=== PATIENT | male | born 1985 | race Caucasian/White ===

== ENCOUNTER 2020-09-16 01:57 | Emergency (ER) | payer MEDICAID ==
[~2020-09-16] VITALS: Ht 165.1 cm; Wt 70.8 kg
--- NOTE | 2020-09-16 02:15 | NUR ---
B[facility] C/O ABDOMINAL PAIN X1 DAY +VOMITTING. PT STATES HE WAS ON 10 DAY BINGE DRINKING APPROXIMATELY 20 BEERS A DAY, LAST ALCOHOL INTAKE IS 20 HOURS AGO WITH 12 BEER CONSUMED,PT STATED THAT HE DONT HAVE A GOOD FOOD INTAKE FOR 1 WEEK, ABDOMINAL PAIN 10/10 WAS NOTED LOCATED AT EPIGASTIC AREA 1X VOMITING ALSO NOTED WITH CLEAR VOMITUS WHEN DOING AN ASSESSMENT NOTED, V/S CHEKED AND RECORDED, BREATHING EVEN AND UNLABORED, PT IS AMBULATORY WITH STEADY GAIT UPON ADMISSION,
[2020-09-16] MEDS ORDERED: IV NS 0.9% 1,000 ML BAG IV ONE (02:30)
[2020-09-16] MEDS ORDERED: ONDANSETRON HCL/PF 4 MG/2 ML VIAL IVP ONE (02:30)
[2020-09-16] MEDS ORDERED: MORPHINE SULFATE INJ 2 MG/ML DISP.SYRIN IV ONE (02:30)
--- NOTE | 2020-09-16 02:40 | NUR ---
LAB AT BEDSIDE, BLOOD DRAW DONE
[2020-09-16] MEDS ORDERED: ONDANSETRON HCL/PF 4 MG/2 ML VIAL ONE (02:42)
[2020-09-16] MEDS ORDERED: MORPHINE SULFATE INJ 4 MG/ML DISP.SYRIN ONE (02:43)
[2020-09-16 02:56] LABS: BASOPHILS # (AUTO) 0.1 /CMM (0.0-0.2); BASOPHILS % (AUTO) 1.1 % (0.0-2.0); EOSINOPHILS % (AUTO) 0.3 % (0.0-6.0); HEMATOCRIT 42 % (39-51); HEMOGLOBIN 14.5 g/dL (13.5-17.5); LYMPHOCYTES # (AUTO) 1.9 /CMM (0.8-4.8); MEAN CORPUSCULAR HGB CONC 35 g/dl (31.0-36.0); MEAN CORPUSCULAR VOLUME 92 fL (80-96); MONOCYTES # (AUTO) 0.5 /CMM (0.1-1.30); MONOCYTES % (AUTO) 8.3 % (2.0-12.0); NEUTROPHILS # (AUTO) 3.4 /CMM (1.8-8.9); NEUTROPHILS % (AUTO) 58.3 % (43.0-81.0); PLATELET COUNT (AUTO) 239 /CMM (150-450); RED BLOOD CELL COUNT(AUTO) 4.58 MIL/uL (4.5-6.0); WHITE BLOOD COUNT (AUTO) 5.8 K/uL (4.3-11.0)
[2020-09-16 03:12] LABS: ALBUMIN 3.7 g/dL (3.4-5.0); BILIRUBIN,DIRECT 0.2 mg/dL (0.0-0.2); BILIRUBIN,TOTAL 0.7 mg/dL (0.2-1.0); CALCIUM, SERUM 8.3 mg/dL (8.5-10.1); CREATININE 0.9 mg/dL (0.6-1.3); POTASSIUM 3.3 mmol/L (3.5-5.1)
--- NOTE | 2020-09-16 03:48 | NUR ---
Patient discharged to home in stable condition. no pain complaint upon discharge, no nausea or vomiting also noted Written and verbal after care instructions given. Patient verbalizes understanding of instruction.IV removed. Catheter intact and site benign. Pressure and 4x4 applied to site. No bleeding noted.Mr. Khan is ambulatory with a steady gait
[2020-09-16 03:50] VITALS: BP 139/80
== END 2020-09-16 03:51 | disposition home or self-care (01) ==
LOC: ER 01:59
DX: R10.9 Unspecified abdominal pain (principal); R11.10 Vomiting, unspecified; F10.10 Alcohol abuse, uncomplicated; Y90.9 Presence of alcohol in blood, level not specified
CPT/HCPCS: 36415; 80048; 80076; 83690; 85025; 96361; 96374; 96375; 99284; J2270; J2405; J7030

== ENCOUNTER 2021-07-07 21:07 | Emergency (ER) | payer MEDICAID ==
[~2021-07-07] VITALS: Ht 165.1 cm; Wt 68.0 kg
--- NOTE | 2021-07-07 22:58 | NUR ---
PT SEEN BY DR. BILL MORENO
[2021-07-07] MEDS ORDERED: ONDANSETRON HCL/PF 4 MG/2 ML VIAL IVP ONE (23:00)
[2021-07-07] MEDS ORDERED: IV NS 0.9% 1,000 ML BAG IV ONE (23:00)
[2021-07-07] MEDS ORDERED: MORPHINE SULFATE INJ 2 MG/ML DISP.SYRIN IV ONE (23:00)
--- NOTE | 2021-07-07 23:00 | NUR ---
BIBS C/O DIFFUSED ABDOMINAL PAIN S/P "DRINKING 6 DAYS STRAIGHT WITH NO FOOD IN STOMACH". PT REPORTS +N/V. RESPIRATIONS EVEN AND UNLABORED. CHANGED INTO A GOWN AND PLACED ON MONITOR AND ALL V/S STABLE.
[2021-07-07] MEDS ORDERED: ONDANSETRON HCL/PF 4 MG/2 ML VIAL ONE (23:04)
[2021-07-07] MEDS ORDERED: MORPHINE SULFATE INJ 4 MG/ML DISP.SYRIN ONE (23:04)
--- NOTE | 2021-07-07 23:06 | NUR ---
[employer]INFORMATICS SCIENTIST AT PT'S BEDSIDE
--- NOTE | 2021-07-07 23:17 | NUR ---
20G IV LINE ESTABLISHED AT [facility]. BLOOD DRAWN AND SENT TO LAB. URINE SAMPLE COLLECTED AND SENT TO LAB.
[2021-07-07 23:20] LABS: BASOPHILS # (AUTO) 0.1 K/uL (0.0-0.2); BASOPHILS % (AUTO) 0.9 % (0.0-2.0); EOSINOPHILS % (AUTO) 0.4 % (0.0-6.0); HEMATOCRIT 43 % (39-51); HEMOGLOBIN 14.7 g/dL (13.5-17.5); LYMPHOCYTES # (AUTO) 2.1 K/uL (0.8-4.8); LYMPHOCYTES % (AUTO) 33.2 % (20.0-44.0); MEAN CORPUSCULAR HGB CONC 35 g/dl (31.0-36.0); MEAN CORPUSCULAR VOLUME 90 fL (80-96); MONOCYTES # (AUTO) 0.6 K/uL (0.1-1.30); MONOCYTES % (AUTO) 9.6 % (2.0-12.0); NEUTROPHILS # (AUTO) 3.6 K/uL (1.8-8.9); NEUTROPHILS % (AUTO) 55.9 % (43.0-81.0); PLATELET COUNT (AUTO) 325 K/uL (150-450); RED BLOOD CELL COUNT(AUTO) 4.75 MIL/uL (4.5-6.0); WHITE BLOOD COUNT (AUTO) 6.4 K/uL (4.3-11.0)
[2021-07-07 23:21] LABS: BILIRUBIN,URINE NEGATIVE (NEGATIVE); COLOR,URINE YELLOW (YELLOW); LEUKOCYTE ESTERASE ,URINE NEGATIVE (NEGATIVE); NITRITE, URINE NEGATIVE (NEGATIVE); PROTEIN,URINE NEGATIVE (NEGATIVE); UGLUCOSE NEGATIVE (NEGATIVE); UROBILINOGEN,URINE 0.2 EU/dL (0.2)
--- NOTE | 2021-07-07 23:32 | NUR ---
Pt returned to ER bed [address]
[2021-07-07 23:34] LABS: CALCIUM, SERUM 8.7 mg/dL (8.5-10.1); CREATININE 1.2 mg/dL (0.6-1.3); POTASSIUM 4.3 mmol/L (3.5-5.1)
[2021-07-07 23:39] LABS: ALBUMIN 3.9 g/dL (3.4-5.0); TOTAL PROTEIN, SERUM 7.4 g/dL (6.4-8.2)
[2021-07-07] MEDS ORDERED: PANT40TA2 PO (23:59)
[2021-07-08] MEDS ORDERED: POLY17PO4 PO (00:11)
[2021-07-08] MEDS ORDERED: DOCU-141 PO (00:11)
--- NOTE | 2021-07-08 00:23 | NUR ---
Patient discharged to home in stable condition. Written and verbal after care instructions given. Patient verbalizes understanding of instruction. IV line discontinued and 2x2 gauze and pressure applied to site without incident.
[2021-07-08 00:30] VITALS: BP 151/87
[2021-07-08 04:25] LABS: BILIRUBIN,TOTAL 0.5 mg/dL (0.2-1.0)
[2021-07-08 05:52] LABS: BILIRUBIN,DIRECT 0.1 mg/dL (0.0-0.2)
== END 2021-07-08 00:30 | disposition home or self-care (01) ==
LOC: ER 21:11
DX: K29.20 Alcoholic gastritis without bleeding (principal); F10.229 Alcohol dependence with intoxication, unspecified; K59.00 Constipation, unspecified; Z79.1 Long term (current) use of non-steroidal anti-inflammatories (NSAID); Z79.899 Other long term (current) drug therapy; Y90.9 Presence of alcohol in blood, level not specified
CPT/HCPCS: 36415; 74176; 80048; 80076; 81003; 83690; 85025; 85730; 96361; 96374; 96375; 99284; J2270; J2405; J7030